=== PATIENT | male | born 1995 | race Caucasian/White ===

== ENCOUNTER 2017-05-01 21:35 | Emergency (ER) | payer OTHER ==
[2017-05-01 21:42] VITALS: TEMP 98.2
--- NOTE | 2017-05-01 21:45 | EDPHY ---
H & P Stated Complaint: nausea and vomiting for 2 hours HPI/ROS: HPI CHIEF COMPLAINT: nausea and vomiting and abdominal pain HISTORY OF PRESENT ILLNESS: This patient very pleasant 21-year-old male, significant past medical history for anxiety and depression, presents emergency room with nausea vomiting and abdominal pain for the past 2.5 hr. He states he is unable to keep anything down. He has periumbilical abdominal pain. He denies fever. Denies chest pain or shortness of breath denies diarrhea. Describes his pain is 7/10 periumbilical achy. Denies testicular pain. Denies urinary symptoms denies back pain. Past Medical History: Anxiety and depression Past Surgical History: Denies surgical history Social History: Denies daily use of drugs alcohol tobacco. Family History: Noncontributory ROS REVIEW OF SYSTEMS: A comprehensive 10 point review of systems is otherwise negative aside from elements mentioned in the history of present illness. Exam Constitutional appears nontoxic, triage nursing summary reviewed, vital signs reviewed, awake/alert. Noted be tachycardic at triage Eyes normal conjunctivae and sclera, EOMI, PERRLA. HENT normal inspection, atraumatic, moist mucus membranes, no epistaxis, neck supple/ no meningismus, no raccoon eyes. Respiratory clear to auscultation bilaterally, normal breath sounds, no respiratory distress, no wheezing. Cardiovascular tachycardia, regular rhythm, no murmur, no edema, distal pulses normal. Gastrointestinal tender palpation periumbilical, mild, no rebound, no guarding , normal bowel sounds, no distension, no pulsatile mass. Genitourinary no CVA tenderness. Musculoskeletal no midline vertebral tenderness, full range of motion, no calf swelling, no tenderness of extremities, no meningismus, good pulses, neurovascularly intact. Skin pink, warm, & dry, no rash, skin atraumatic. Neurologic awake, alert and oriented x 3, AAOx3, moves all 4 extremities equally, motor intact, sensory intact, CN II-XII intact, normal cerebellar, normal vision, normal speech. Psychiatric normal mood/affect. Heme/Lymph/Immune no lymphadenopathy. Differential diagnosis includes but is not limited to and in no particular order : Bowel obstruction, appendicitis, gallbladder disease, diverticulitis, colitis , enteritis, perforated viscus, gastritis, GERD, esophagitis, urinary tract infection, pyelonephritis, kidney stones Medical Decision Making: Plan for this patient IV establishment IV fluid bolus , IV Zofran for nausea, IV Dilaudid for pain control, CT scan abdomen pelvis with IV contrast rule out acute appendicitis. Re-evaluate. Check basic blood work. UA. Re-evaluation: CT scan of the abdomen pelvis with IV contrast rule out acute appendicitis is negative for acute appendicitis normal appendix visualized. Report called to me by Dr. Qucik. [id number]: I did re-evaluate the patient the patient is feeling nauseous again. I have ordered him 2.5 mg IV Haldol. [id number]: Patient is feeling much better. Abdomen remained soft she is not vomiting. He would like to go home. He is well-hydrated. CT scan and blood work have been reviewed. Unremarkable. No evidence of acute appendicitis. Most likely cause of nausea vomiting is viral GI illness. Return precautions discussed with the patient. Source: Patient - Personal History Current Tetanus/Diphtheria Vaccine: Yes Current Tetanus Diphtheria and Acellular Pertussis (TDAP): Yes - Medical/Surgical History Hx Asthma: No Hx Chronic Respiratory Disease: No Hx Diabetes: No Hx Cardiac Disease: No Hx Renal Disease: No Hx Cirrhosis: No Hx Alcoholism: No Hx HIV/AIDS: No Hx Splenectomy or Spleen Trauma: No Other PMH: denies - Social History Smoking Status: Never smoked Constitutional: Initial Vital Signs Temperature (C) 36.8 C 05/01/17 21:38 Heart Rate 125 H 05/01/17 21:38 Respiratory Rate 18 05/01/17 21:38 Blood Pressure 132/86 H 05/01/17 21:38 O2 Sat (%) 96 05/01/17 21:38 O2 Delivery Mode Room Air Allergies/Adverse Reactions: No Known Allergies Allergy (Unverified 05/01/17 21:42) Home Medications: Medication Instructions Recorded GABAPENTIN 05/01/17 Ondansetron HCl [Zofran] 4 mg PO Q4-6PRN PRN #10 tablet 05/01/17 Zoloft 100mg (*) 05/01/17 Medical Decision Making - Diagnostics Imaging Results: Imaging Impressions Abdomen CT 05/01/17 21:49 Impression: 1. Mild constipation. 2. No CT evidence of appendicitis, abscess or bowel obstruction. Findings and recommendations discussed with Emergency Department physician, Tico Regan MD at 22:39 hour, 05/01/2017. Final report concurs with initial preliminary interpretation. - Data Points Laboratory Results: Laboratory Results 05/01/17 21:55 05/01/17 21:55 05/01/17 05/01/17 21:55 21:55 WBC 13.17 10^3/uL H 10^3/uL (3.80-9.50) RBC 4.99 10^6/uL 10^6/uL (4.40-6.38) Hgb 15.7 g/dL g/dL (13.7-17.5) Hct 42.9 % % (40.0-51.0) MCV 86.0 fL fL (81.5-99.8) MCH 31.5 pg pg (27.9-34.1) MCHC 36.6 g/dL g/dL (32.4-36.7) RDW 11.9 % % (11.5-15.2) Plt Count 210 10^3/uL 10^3/uL (150-400) MPV 9.7 fL fL (8.7-11.7) Neut % (Auto) 88.7 % H % (39.3-74.2) Lymph % (Auto) 4.3 % L % (15.0-45.0) [place] % (Auto) 6.4 % % (4.5-13.0) Eos % (Auto) 0.2 % L % (0.6-7.6) Baso % (Auto) 0.2 % L % (0.3-1.7) Nucleat RBC Rel Count 0.0 % % (0.0-0.2) Absolute Neuts (auto) 11.69 10^3/uL H 10^3/uL (1.70-6.50) Absolute Lymphs (auto) 0.56 10^3/uL L 10^3/uL (1.00-3.00) Absolute Monos (auto) 0.84 10^3/uL H 10^3/uL (0.30-0.80) Absolute Eos (auto) 0.02 10^3/uL L 10^3/uL (0.03-0.40) Absolute Basos (auto) 0.03 10^3/uL 10^3/uL (0.02-0.10) Absolute Nucleated RBC 0.00 10^3/uL 10^3/uL (0-0.01) Immature Gran % 0.2 % % (0.0-1.1) Immature Gran # 0.03 10^3/uL 10^3/uL (0.00-0.10) Sodium 145 mEq/L H mEq/L (134-144) Potassium 4.1 mEq/L mEq/L (3.5-5.2) Chloride 102 mEq/L mEq/L (97-110) Carbon Dioxide 25 mEq/l mEq/l (22-31) Anion Gap 18 mEq/L H mEq/L (8-16) BUN 17 mg/dL mg/dL (7-23) Creatinine 0.9 mg/dL mg/dL (0.7-1.3) Estimated GFR > 60 Glucose 123 mg/dL H mg/dL (70-100) Calcium 9.9 mg/dL mg/dL (8.5-10.4) Total Bilirubin 0.8 mg/dL mg/dL (0.1-1.4) Conjugated Bilirubin 0.2 mg/dL mg/dL (0.0-0.5) Unconjugated Bilirubin 0.6 mg/dL mg/dL (0.0-1.1) AST 27 IU/L IU/L (17-59) ALT 36 IU/L IU/L (21-72) Alkaline Phosphatase 116 IU/L IU/L (38-126) Total Protein 8.1 g/dL g/dL (6.3-8.2) Albumin 4.8 g/dL g/dL (3.5-5.0) Lipase 37 IU/L IU/L (23-300) Medications Given: Discontinued Medications Haloperidol Lactate (Haldol Injection) 2.5 mg IVP EDNOW ONE Stop: 05/01/17 23:19 Last Admin: 05/01/17 23:29 Dose: 2.5 mg Hydromorphone HCl (Dilaudid) 0.5 mg IVP EDNOW ONE Stop: 05/01/17 21:50 Last Admin: 05/01/17 22:05 Dose: 0.5 mg Sodium Chloride (Ns) 1,000 mls @ 0 mls/hr IV EDNOW ONE; Wide Open PRN Reason: Protocol Stop: 05/01/17 21:48 Last Admin: 05/01/17 21:55 Dose: 1,000 mls Ondansetron HCl (Zofran) 4 mg IVP EDNOW ONE Stop: 05/01/17 21:48 Last Admin: 05/01/17 22:06 Dose: 4 mg Departure - Departure Disposition: Home, Routine, Self-Care Clinical Impression: Nausea and vomiting Qualifiers: Vomiting type: unspecified Vomiting Intractability: non-intractable Qualified Code(s): R11.2 - Nausea with vomiting, unspecified Condition: Good Instructions: Acute Nausea and Vomiting (ED) Additional Instructions: 1. [place] diet next 24-48 hours. 2. Return emergency room if you have worsening abdominal pain fever vomiting. 3. Zofran as prescribed. Referrals: NONE *PRIMARY CARE P,. [Primary Care Provider] - As per Instructions Prescriptions: Ondansetron HCl [Zofran] 4 mg PO Q4-6PRN PRN #10 tablet PRN Reason: Nausea/Vomiting, Use 1st
[2017-05-01] MEDS ORDERED: NS 1,000 ML IV ONE (21:47)
[2017-05-01] MEDS ORDERED: ONDANSETRON 4 MG/2 ML VIAL IVP ONE (21:47)
[2017-05-01] MEDS ORDERED: HYDROmorphONE/DILAUDID 1 MG/ML INJ IVP ONE (21:49)
[2017-05-01 22:04] LABS: PLATELET COUNT 210 10^3/uL (150-400)
[2017-05-01] MEDS ORDERED: IOPAMIDOL (ISOVUE-300) 100 ML BTL ONE (22:14)
[2017-05-01 22:18] VITALS: RESP 16
[2017-05-01] MEDS ORDERED: HALOPERIDOL LACT 5 MG/ML INJ IVP ONE (23:18)
[2017-05-01] MEDS ORDERED: HALOPERIDOL LACT 5 MG/ML INJ ONE (23:29)
[2017-05-01 23:31] VITALS: BP 120/77; PULSE 110; O2SAT 97
== END 2017-05-02 00:42 | disposition home or self-care (01) ==
PROC: 3E0337Z Introduction of Electrolytic and Water Balance Substance into Peripheral Vein, Percutaneous Approach (ICD-10-PCS; principal; 2017-05-01)
DX: R11.2 Nausea with vomiting, unspecified (principal); E86.9 Volume depletion, unspecified
CPT/HCPCS: 80305; 96374; J1170; J1630; J2405; Q9967

== ENCOUNTER 2017-05-02 04:53 | Emergency (ER) | payer OTHER ==
--- NOTE | 2017-05-02 04:56 | EDPHY ---
H & P HPI/ROS: HPI CHIEF COMPLAINT: "I am anxious and I cant Sleep" HISTORY OF PRESENT ILLNESS: Patient is a 21-year-old male, history of anxiety, presents back to the emergency room after I saw him earlier in the evening for nausea vomiting and abdominal pain. At that time the patient had IV fluids nausea medicine blood work and a CT scan that was unrevealing his CT scan showed constipation but no acute inflammatory process. He p.o. challenge prior to being discharged fell well went home. However he is back in the emergency room complaining of anxiety and states that he can't sleep he is having some ongoing nausea. He denies any abdominal pain chest pain or shortness of breath denies fever denies active vomiting. No diarrhea. Decided come back to the emergency room as he feels anxious and nauseous. Past Medical History: Anxiety Past Surgical History: Denies any recent surgical history Social History: Denies daily use of use of drugs alcohol tobacco. Family History: Noncontributory ROS REVIEW OF SYSTEMS: A comprehensive 10 point review of systems is otherwise negative aside from elements mentioned in the history of present illness. Exam Constitutional appears anxious otherwise well, triage nursing summary reviewed , vital signs reviewed, awake/alert. Eyes normal conjunctivae and sclera, EOMI, PERRLA. HENT normal inspection, atraumatic, moist mucus membranes, no epistaxis, neck supple/ no meningismus, no raccoon eyes. Respiratory clear to auscultation bilaterally, normal breath sounds, no respiratory distress, no wheezing. Cardiovascular rate normal, regular rhythm, no murmur, no edema, distal pulses normal. Gastrointestinal soft, non-tender, no rebound, no guarding, normal bowel sounds, no distension, no pulsatile mass. Genitourinary no CVA tenderness. Musculoskeletal no midline vertebral tenderness, full range of motion, no calf swelling, no tenderness of extremities, no meningismus, good pulses, neurovascularly intact. Skin pink, warm, & dry, no rash, skin atraumatic. Neurologic awake, alert and oriented x 3, AAOx3, moves all 4 extremities equally, motor intact, sensory intact, CN II-XII intact, normal cerebellar, normal vision, normal speech. Psychiatric anxious, normal mood/affect. Heme/Lymph/Immune no lymphadenopathy. Differential Diagnosis: Includes but is not limited to in a particular order acute anxiety, insomnia, dehydration, viral illness Medical Decision Making: Plan for this patient will give a dose of 25 mg p. o. Phenergan and 25 mg p.o. Benadryl to see if this helps with his nausea and anxiety. Will re-evaluate shortly. I do not feel that he needs another IV or IV fluids or repeat blood work or CT imaging at this time. He was just seen proximally 5 hr ago. Re-evaluation: Patient received 25 mg of Phenergan here, and 25 mg of Benadryl. He reports to me his anxiety is better nausea is better. He has not had any vomiting here. Will allow him to go home. I have given him a prescription for Zofran as well as Phenergan. Again return precautions discussed. Source: Patient - Medical/Surgical History Hx Asthma: No Hx Chronic Respiratory Disease: No Hx Diabetes: No Hx Cardiac Disease: No Hx Renal Disease: No Hx Cirrhosis: No Hx Alcoholism: No Hx HIV/AIDS: No Hx Splenectomy or Spleen Trauma: No Other PMH: denies - Social History Smoking Status: Never smoked Constitutional: Initial Vital Signs Temperature (C) 36.8 C 05/02/17 04:57 Heart Rate 122 H 05/02/17 04:57 Respiratory Rate 18 05/02/17 04:57 Blood Pressure 129/79 H 05/02/17 04:57 O2 Sat (%) 96 05/02/17 04:57 O2 Delivery Mode Room Air Allergies/Adverse Reactions: No Known Allergies Allergy (Verified 05/02/17 05:00) Home Medications: Medication Instructions Recorded GABAPENTIN 05/01/17 Ondansetron HCl [Zofran] 4 mg PO Q4-6PRN PRN #10 tablet 05/01/17 Zoloft 100mg (*) 05/01/17 Promethazine HCl 25 mg PO Q6-8PRN PRN #10 tablet 05/02/17 Medical Decision Making - Data Points Medications Given: Discontinued Medications Diphenhydramine HCl (Benadryl) 25 mg PO EDNOW ONE Stop: 05/02/17 05:06 Last Admin: 05/02/17 05:09 Dose: 25 mg Promethazine HCl (Phenergan) 25 mg PO EDNOW ONE Stop: 05/02/17 05:06 Last Admin: 05/02/17 05:09 Dose: 25 mg Departure - Departure Disposition: Home, Routine, Self-Care Clinical Impression: Anxiety, Nausea Condition: Good Instructions: Acute Nausea and Vomiting (ED), Anxiety (ED) Referrals: NONE *PRIMARY CARE P,. [Primary Care Provider] - As per Instructions Prescriptions: Promethazine HCl 25 mg PO Q6-8PRN PRN #10 tablet PRN Reason: Nausea/Vomiting, Use 1st
[2017-05-02 04:59] VITALS: TEMP 98.2; O2SAT 96
[2017-05-02] MEDS ORDERED: PROMETHAZINE HCL 25 MG TAB PO ONE (05:05)
[2017-05-02] MEDS ORDERED: diphenhydrAMINE 25 MG CAP PO ONE (05:05)
[2017-05-02] MEDS ORDERED: ONDANSETRON 4MG PREPACK#2 BTL TAKEHOME ONE (05:49)
[2017-05-02 05:57] VITALS: BP 130/75; PULSE 66; RESP 19
== END 2017-05-02 05:54 | disposition home or self-care (01) ==
DX: F41.9 Anxiety disorder, unspecified (principal); R11.0 Nausea

== ENCOUNTER 2018-10-19 16:24 | Emergency (ER) | payer OTHER | END 2018-10-19 18:52 | disposition home or self-care (01) ==